=== PATIENT | female | born 2000 | race Caucasian/White ===

== ENCOUNTER 2021-11-29 01:12 | Emergency (ER) | payer SELFPAY ==
[~2021-11-29] VITALS: Ht 170.2 cm; Wt 86.2 kg
--- NOTE | 2021-11-29 01:35 | NUR ---
Dr. Sullivan at bedside for MSE.
[2021-11-29] MEDS ORDERED: IV NORMAL SALINE 1000 ML BAG IV ONE ×2 (01:45→02:45)
--- NOTE | 2021-11-29 01:46 | NUR ---
Xray at bedside.
[2021-11-29 02:12] LABS: HEMATOCRIT 34.1 % (31.2-41.9); MEAN CORPUSCULAR HEMOGLOBIN 27.9 uug (24.7-32.8); MEAN CORPUSCULAR VOLUME 84.5 fL (75.5-95.3); PLATELET COUNT (AUTO) 243 K/uL (179-408)
[2021-11-29 02:18] LABS: CARBON DIOXIDE 30 mmol/L (21-32); CHLORIDE 105 mmol/L (98-107); CREATININE 1.1 mg/dL (0.6-1.3); GLUCOSE 152 mg/dL (74-106); POTASSIUM 3.1 mmol/L (3.5-5.1); UREA NITROGEN, BLOOD 13 mg/dL (7-18)
[2021-11-29 02:24] LABS: ALANINE AMINOTRANSFERASE 43 U/L (14-59); ALKALINE PHOSPHATASE 66 U/L (50-136); ASPARTATE AMINOTRANSFERASE 29 U/L (15-37); BILIRUBIN,DIRECT 0.1 mg/dL (0.0-0.2); BILIRUBIN,TOTAL 0.2 mg/dL (0.2-1.0); TOTAL PROTEIN, SERUM 7.1 g/dL (6.4-8.2)
[2021-11-29 02:29] LABS: ACETAMINOPHEN < 2.0 ug/mL (10-30)
[2021-11-29 02:32] LABS: THYROID STIMULATING HORMONE 1.469 mIU/mL (0.358-3.740)
[2021-11-29 02:35] LABS: ETHANOL < 3 MG/DL (0-0)
[2021-11-29 03:07] LABS: *BILIRUBIN,URIN NEGATIVE (NEGATIVE); *COLOR,URINE YELLOW (YELLOW); *KETONES,URINE TRACE (NEGATIVE); *UROBILINOGEN,URINE 0.2 E.U./dl (NORMAL); LEUKOCYTE ESTERASE ,URINE 1+ (NEGATIVE); NITRITE, URINE NEGATIVE (NEGATIVE); UGLUCOSE NEGATIVE (NEGATIVE)
[2021-11-29 03:10] LABS: *BLOOD, URINE TRACE (NEGATIVE); *CLARITY,URINE HAZY (CLEAR)
[2021-11-29 03:18] LABS: *AMPHETAMINE, URINE POSITIVE (NEGATIVE); *CANNABINOID, URINE POSITIVE (NEGATIVE); *COCCAINE, URINE NEGATIVE (NEGATIVE); *OPIATE, URINE NEGATIVE (NEGATIVE); *PHENCYCLIDINE SCREEN,URINE NEGATIVE (NEGATIVE)
[2021-11-29 03:34] LABS: BACTERIA,URINE MODERATE /HPF (NONE SEEN); SQUAMOUS EPITHELIAL CELL,UR MODERATE /HPF (NONE SEEN); WBC,URINE 50-80 /HPF (0-3)
[2021-11-29] MEDS ORDERED: NALO4SPR NS (03:45)
--- NOTE | 2021-11-29 06:11 | NUR ---
Patient given written and verbal discharge instructions. Patient verbalizes understanding of instructions. Patient is ambulatory with steady gait. Refuses offer of correction placement. Patient given list of available shelters in surrounding area. Pt provided with food, juice, clothes, and tap card, out of ER with steady gait, no acute signs of distress, VSS, all belongings taken, IV site discontinued, provided with directions to correction of choice.
[2021-11-29 06:14] VITALS: BP 134/86
== END 2021-11-29 06:15 | disposition home or self-care (01) ==
LOC: ER 01:17
DX: T40.411A Poisoning by fentanyl or fentanyl analogs, accidental (unintentional), initial encounter (principal); R40.0 Somnolence; F15.10 Other stimulant abuse, uncomplicated; Y92.410 Unspecified street and highway as the place of occurrence of the external cause; Z59.00 Homelessness unspecified; R94.31 Abnormal electrocardiogram [ECG] [EKG]; Z91.010 Allergy to peanuts; Z91.013 Allergy to seafood
CPT/HCPCS: 36415; 71045; 80048; 80076; 80299; 80307; 80320; 81001; 84443; 84702; 85025; 87086; 93005; 96360; 96361; 99285; J7040; A4663; C1758; G0480